=== PATIENT | female | born 1970 ===

== ENCOUNTER 2019-05-12 11:30 | Inpatient (IN) | payer OTHER ==
[~2019-05-12] VITALS: Ht 154.9 cm; Wt 64.4 kg
[2019-05-12] MEDS ORDERED: CRESTOR10 MG PO (12:00)
[2019-05-30] MEDS ORDERED: PERCOCET 5-3251 EACH PO (17:02)
[2019-05-30] MEDS ORDERED: SIMETHICONE125 M1 PO (17:03)
[2019-05-30] MEDS ORDERED: COLACE100 MG PO (17:03)
== END 2019-05-30 17:13 | disposition home or self-care (01) | DRG 743 ==
LOC: O/R 11:30 → OB/GYN 05-28 04:50 → O/R 05-28 04:50 → OB/GYN 05-28 13:14
PROVIDERS: ADMIT Obstetrics & Gynecology
PROC: 0UT70ZZ Resection of Bilateral Fallopian Tubes, Open Approach (ICD-10-PCS; 2019-05-28)
PROC: 0USG7ZZ Reposition Vagina, Via Natural or Artificial Opening (ICD-10-PCS; 2019-05-28)
PROC: 0UT90ZZ Resection of Uterus, Open Approach (ICD-10-PCS; principal; 2019-05-28 10:15)
DX: D25.1 Intramural leiomyoma of uterus (principal); N72 Inflammatory disease of cervix uteri; N81.11 Cystocele, midline; D50.0 Iron deficiency anemia secondary to blood loss (chronic); I11.9 Hypertensive heart disease without heart failure; I97.3 Postprocedural hypertension